=== PATIENT | female | born 1955 | race Two or more races ===

== ENCOUNTER → 2024-04-28 | Outpatient (CLI) | payer MEDICARE, MEDICAID, SELFPAY ==
--- NOTE | 2024-04-28 08:45 | XR_ITS ---
Examination: Breast ultrasound complete, bilateral Date and time of exam: April 28, 2024 0845 hours INDICATIONS: Palpable lump outer left breast beginning 3 months ago Technique: Real-time grayscale ultrasonographic imaging bilateral breasts, including all 4 quadrants as well as nipple retroareolar and axillary regions. Findings: No cystic or solid mass involving either breast IMPRESSION: BI-RADS Category 1: Negative studies
--- NOTE | 2024-04-28 09:45 | XR_ITS ---
Examination: Diagnostic digital mammography, bilateral Computer aided detection 3-D breast Tomosynthesis, bilateral Date and time of exam: April 28, 2024 0917 hours INDICATIONS: Patient states bilateral breast pain 6 months Technique: Nonmagnified MLO, CC views of the breasts to been obtained, reconstructed from 3-D Tomosynthesis images. R2 computer aided detection program utilized for evaluation of suspicious masses and/or abnormal calcifications. 3-D Tomosynthesis images obtained. Findings: Scattered areas of fibroglandular density. Skin lesion upper outer right breast Benign calcifications No suspicious masses Bilateral breast sonogram today demonstrates no suspicious masses Impression: BI-RADS Category 2: Benign findings Recommend yearly follow-up mammography .
--- NOTE | 2024-04-28 10:00 | XR_ITS ---
Examination: Venous duplex lower extremity sonogram, bilateral. Date and time of exam: April 28, 2024 0851 hours INDICATIONS: Bilateral leg pain several years Technique: Multiple sonographic images of the deep venous system have been obtained. B-mode/2-D grayscale imaging of vascular structures and Doppler spectral analysis (waveforms) and color performed Both legs are examined. Findings: Deep venous systems do not demonstrate abnormal echogenicity. All visualized deep veins exhibit compressibility. All visualized deep veins exhibit augmentation. Impression: Negative for deep vein thrombosis Positive for nonocclusive thrombus in the superficial left greater saphenous vein
== END | disposition home or self-care (01) ==
PROVIDERS: Referring Provider Nurse Practitioner Family; Visit Provider Nurse Practitioner Family
DX: R92.323 Mammographic fibroglandular density, bilateral breasts (principal); R92.1 Mammographic calcification found on diagnostic imaging of breast; I82.890 Acute embolism and thrombosis of other specified veins
CPT/HCPCS: 20600; 76641; 77062; 77066; 93970; G0279